=== PATIENT | female | born 1955 | race Caucasian/White ===

== ENCOUNTER 2023-10-30 18:06 | Emergency (ER) | payer MEDICARE ==
[~2023-10-30] VITALS: Ht 170.2 cm; Wt 81.8 kg
[2023-10-30] MEDS ORDERED: CALC-1124 PO (18:24)
[2023-10-30] MEDS ORDERED: APIX5TAB PO (18:24)
[2023-10-30] MEDS ORDERED: VALS1TAB77 PO (18:24)
[2023-10-30] MEDS ORDERED: ATOR10TA PO (18:24)
[2023-10-30] MEDS ORDERED: SOTOLOL PO (18:24)
[2023-10-30] MEDS ORDERED: AMIT-166 PO (18:24)
[2023-10-30] MEDS ORDERED: SOTA80TA PO (18:26)
[2023-10-30 18:33] LABS: COVID AG,FIA SOURCE NASAL SWAB
[2023-10-30 19:23] LABS: SARS-COV2 (COVID) ANTIGEN,FIA Negative (Negative)
[2023-10-30 19:24] LABS: INFLUENZA TYPE A NEGATIVE FOR TYPE A (NEGATIVE); INFLUENZA TYPE B POSITIVE FOR TYPE B (NEGATIVE); RESPIRATORY SYNCYTIAL VIRS,FIA NEGATIVE (Negative)
[2023-10-30 20:35] VITALS: PULSE 75; TEMP 99.2
[2023-10-30 21:47] VITALS: BP 133/84; RESP 15
[2023-10-30] MEDS ORDERED: AMOX1TAB16 PO (21:56)
[2023-10-30] MEDS ORDERED: MOME15CR4 TP (21:57)
[2023-10-30] MEDS ORDERED: ALBU18HF12 IH (21:57)
[2023-10-30] MEDS ORDERED: BENZ-227 PO (21:57)
== END 2023-10-30 22:19 | disposition home or self-care (01) ==
LOC: EMS 18:08
DX: J10.1 Influenza due to other identified influenza virus with other respiratory manifestations (principal); L30.9 Dermatitis, unspecified; I10 Essential (primary) hypertension; Z20.822 Contact with and (suspected) exposure to COVID-19
CPT/HCPCS: 71045; 87420; 87804; 99284